=== PATIENT | female | born 1975 | race African-American/Black ===

== ENCOUNTER 2016-04-11 01:22 | Emergency (ER) | payer OTHER ==
[~2016-04-11] VITALS: Ht 175.3 cm; Wt 154.2 kg
[~2016-04-11 01:22] MED LIST: PREDNISONE 20MG20 MG PO
[2016-04-11 01:37] VITALS: BP 153/96
--- NOTE | 2016-04-11 01:54 | ED GI/GU/ABDOMINAL COMPLAINT ---
History of Present Illness General Chief Complaint: Female Urogenital Problems Stated Complaint: VAG BLEEDING 4 WEEKS PREG Source: patient Exam Limitations: no limitations Vital Signs & Intake/Output Vital Signs & Intake/Output Vital Signs Date Time Temp Pulse Resp B/P Pulse O2 O2 Flow FiO2 Ox Delivery Rate 04/11 0137 97.2 66 18 153/96 99 Room Air Allergies Coded Allergies: MDX - Cefuroxime (From CEFTIN) (Severe, HIVES, NAUSEA, VOMITING, DIARRHEA ) MDX - Kiwi Fruit Extract (KIWI FRUIT EXTRACT) (Severe, SWOLLEN LIPS 01/21/14) Reconcile Medications Prednisone 20 MG TABLET 3 TAB PO DAILY LIP SWELLING Triage Note: pt is 4 weeks developed abd cramping and vaginal bleeding a couple of hrs ago Triage Nurses Notes Reviewed? yes ? N Is pt currently ? No HPI: Patient was diagnosed by her primary care physician last week his being . 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 Patient thinks that she is approximately 4 weeks . This is her first . Tonight she developed pelvic cramping similar to prior periods. Patient then began vaginal bleeding. Patient noticed a piece of tissue on the toilet paper. Patient comes in for evaluation. The cramping is constant. She rates it as a 6 out of 10. There is no radiation. There are no aggravating or mitigating factors. Past History Travel History Traveled to [place] past 21 day No Medical History Any Pertinent Medical History? none Neurological: NONE EENT: NONE Cardiovascular: NONE Respiratory: NONE Gastrointestinal: NONE Hepatic: NONE Renal: NONE Musculoskeletal: NONE Psychiatric: NONE Endocrine: NONE Blood Disorders: NONE Cancer(s): NONE Surgical History Surgical History: none Psychosocial History What is your primary language Portuguese Tobacco Use: Never used ETOH Use: occasional use Illicit Drug Use: denies illicit drug use Family History Hx Contributory? No Review of Systems Review of Systems Constitutional: Reports: no symptoms. EENTM: Reports: no symptoms. Respiratory: Reports: no symptoms. Cardiovascular: Reports: no symptoms. GI: Reports: no symptoms. Genitourinary: Reports: see HPI. Musculoskeletal: Reports: no symptoms. Skin: Reports: no symptoms. Neurological/Psychological: Reports: no symptoms. Hematologic/Endocrine: Reports: no symptoms. Immunologic/Allergic: Reports: no symptoms. All Other Systems: Reviewed and Negative Physical Exam Physical Exam General Appearance: well developed/nourished, alert, awake, anxious, mild distress Head: atraumatic, normal appearance Eyes: Bilateral: PERRL, EOMI. Ears, Nose, Throat, Mouth: hearing grossly normal, moist mucous membrane Neck: normal inspection, supple, full range of motion Respiratory: normal breath sounds, chest non-tender, no respiratory distress, lungs clear Cardiovascular: regular rate/rhythm, normal peripheral pulses Gastrointestinal: normal bowel sounds, soft, non-tender, no organomegaly Back: normal inspection, normal range of motion Extremities: normal range of motion Neurologic/Psych: no motor/sensory deficits, awake, alert, oriented x 3, normal gait, normal mood/affect Skin: intact, normal color, warm/dry Core Measures ACS in differential dx? No Severe Sepsis Present: No Septic Shock Present: No Progress Differential Diagnosis: ectopic , intrauterine , threatened AB Plan of Care: Orders Procedure Date/time Status URINALYSIS 04/11 152 Active HUMAN BETA HCG TITRE 04/11 152 Complete COMPREHENSIVE METABOLIC PANEL 04/11 152 Complete CBC WITHOUT DIFFERENTIAL 04/11 152 Complete TYPE & SCREEN (NOT X-MATCH) 04/11 152 Complete Laboratory Tests 04/11/16 0200: Anion Gap 7, Estimated GFR > 60, BUN/Creatinine Ratio 15.6, Glucose 99, Calcium 9.2, Total Bilirubin 0.4, AST 17, ALT 18, Alkaline Phosphatase 64, Total Protein 7.4, Albumin 3.7, Globulin 3.7, Albumin/Globulin Ratio 1.0 L, Beta HCG, Quant < 2.4, CBC w Diff MAN DIFF ORDERED, RBC 5.71 H, MCV 61.5 L, MCH 19.6 L, RDW 20.0 H, MPV 8.7, Segmented Neutrophils 31 L, Lymphocytes 56 H, Monocytes 11 H, Eosinophils 1, Basophils 1, Platelet Estimate ADEQUATE, Hypochromic- Microcytic 2+, Poikilocytosis 1+, Target Cells 1+, Ovalocytes 2+, PUBS MCHC 31.9 L Initial ED EKG: none Departure Departure Disposition: HOME OR SELF CARE Condition: Stable Clinical Impression Primary Impression: Miscarriage Referrals: LOS ALMAZAN,RILEY Sepulveda (PCP/Family) Additional Instructions: RETURN IF SYMPTOMS WORSEN OR FOR ANY CONCERNS Departure Forms: Customer Survey General Discharge Information
[2016-04-11 02:10] LABS: HEMATOCRIT 35.1 % (37-47); MEAN CORPUSCULAR HGB 19.6 PG (27.0-31.0); MEAN CORPUSCULAR HGB CONC 31.9 G/DL (33.0-37.0); MEAN CORPUSCULAR VOLUME 61.5 FL (81.0-99.0); MEAN PLATELET VOLUME 8.7 FL (7.4-10.4); PLATELET COUNT 270 /CUMM (130-400); RED BLOOD CELL CT 5.71 /CUMM (4.20-5.40); WHITE BLOOD CELL COUNT 6.8 /CUMM (4.8-10.8)
== END 2016-04-11 03:28 ==
LOC: ERH 01:22
PROVIDERS: Emergency Medicine
DX: O03.9 Complete or unspecified spontaneous abortion without complication (principal)